=== PATIENT | male | born 1940 | race Caucasian/White ===

== ENCOUNTER 2017-05-27 22:37 | Inpatient (IN) | payer BC ==
[~2017-05-27] VITALS: Ht 180.3 cm; Wt 75.3 kg
[2017-05-27 22:52] LABS: BASOPHIL (%) 0.5 % (0-1); BASOPHIL COUNT 0.1 K/uL (0-0.1); EOSINOPHIL (%) 2.4 % (0-5); EOSINOPHIL COUNT 0.3 K/uL (0-0.3); HEMATOCRIT 38.1 % (38.0-50.0); HEMOGLOBIN 13.7 G/DL (12.5-16.6); IMMATURE GRANULOCYTE (%) 0.6 % (0.0-0.7); LYMPHOCYTE (%) 20.1 % (15-42); LYMPHOCYTE COUNT 2.8 K/uL (1.0-2.8); MCH 33.9 PG (29.0-34.0); MCV 94.3 FL (86-99); MONOCYTE (%) 6.1 % (3-12); MONOCYTE COUNT 0.9 K/uL (0-0.8); NEUTROPHIL (%) 70.3 % (45-76); NEUTROPHIL COUNT 9.9 K/uL (1.8-6.4); PLATELET COUNT 174 K/uL (156-360); RBC DIS.WIDTH-CV 13.2 % (11.8-14.6); RBC DIS.WIDTH-SD 45.2 % (39-53); RED BLOOD COUNT 4.04 M/uL (4.00-5.50); WHITE BLOOD COUNT 14.2 K/uL (4.1-10.2)
[2017-05-27 23:12] LABS: ALBUMIN 4.1 g/dL (3.2-4.8)
[2017-05-27 23:13] LABS: CHLORIDE 102 mEq/L (99-109); POTASSIUM 3.9 mEq/L (3.7-5.4); SODIUM 138 mEq/L (136-147)
[2017-05-27] MEDS ORDERED: XARELTO20 MG PO (23:13)
[2017-05-27] MEDS ORDERED: LOPRESSOR100 M1 PO (23:14)
[2017-05-27 23:15] LABS: GLUCOSE 134 mg/dL (70-99); TOTAL PROTEIN 6.3 g/dL (6.4-8.3)
[2017-05-27] MEDS ORDERED: GLUCOPHAGE500 MG PO (23:15)
[2017-05-27] MEDS ORDERED: VERAPAMIL HCL240 MG PO (23:16)
[2017-05-27] MEDS ORDERED: ZYLOPRIM100 MG PO (23:16)
[2017-05-27 23:17] LABS: TOTAL BILIRUBIN 0.8 mg/dL (0.0-1.0)
[2017-05-27] MEDS ORDERED: PRAVACHOL40 MG PO (23:17)
[2017-05-27 23:18] LABS: ALKALINE PHOSPHATASE 65 IU/L (3-129)
[2017-05-27 23:19] LABS: CREATININE 1.1 mg/dL (0.6-1.3); GFR ESTIMATE (CALCULATED) > 59 mL/min/ (58.99-99999)
[2017-05-27 23:20] LABS: AST (GOT) 20 IU/L (2-34); UREA NITROGEN (BUN) 29 mg/dL (9-23)
[2017-05-27] MEDS ORDERED: PAMELOR25 MG PO (23:20)
[2017-05-27] MEDS ORDERED: PROSCAR5 MG PO (23:20)
[2017-05-27 23:22] LABS: ALT (GPT) 21 IU/L (3-49); LIPASE 36 U/L (1.0-51.0)
[2017-05-27 23:40] LABS: INTER. NORMALIZED RATIO 2.3
[2017-05-27 23:42] LABS: PTT 30.8 SEC (25-37)
[2017-05-27] MEDS ORDERED: DIGOX125 MCG PO (23:50)
[2017-05-27] MEDS ORDERED: TYLENOL EXTRA500 MG PO (23:51)
[2017-05-27] MEDS ORDERED: HYDROCHLOROTH12.5 M3 PO (23:51)
[2017-05-28] VITALS (18 sets, daily range): BP systolic 100–155; BP diastolic 42–99
[2017-05-28 04:38] LABS: CHLORIDE 104 mEq/L (99-109); POTASSIUM 4.1 mEq/L (3.7-5.4); SODIUM 141 mEq/L (136-147)
[2017-05-28 04:41] LABS: GLUCOSE 211 mg/dL (70-99)
[2017-05-28 04:43] LABS: CREATININE 1.3 mg/dL (0.6-1.3); GFR ESTIMATE (CALCULATED) 57 mL/min/ (58.99-99999)
[2017-05-28 04:44] LABS: UREA NITROGEN (BUN) 29 mg/dL (9-23)
[2017-05-28 04:46] LABS: CREATINE KINASE 57 IU/L (1-294); TOTAL CK 57 IU/L (1-294)
[2017-05-28 04:48] LABS: HEMATOCRIT 27.4 % (38.0-50.0); MCH 34.7 PG (29.0-34.0); MCHC 34.7 G/DL (30.0-36.0); PLATELET COUNT 170 K/uL (156-360); RBC DIS.WIDTH-CV 13.7 % (11.8-14.6); RBC DIS.WIDTH-SD 49.9 % (39-53); WHITE BLOOD COUNT 17.2 K/uL (4.1-10.2)
[2017-05-28 04:49] LABS: HEMOGLOBIN 9.5 G/DL (12.5-16.6); RED BLOOD COUNT 2.74 M/uL (4.00-5.50)
[2017-05-28 04:51] LABS: CK-MB 1.8 ng/mL (0.0-4.9); CKMB RELATIVE INDEX 3.2 (0.0-3.9)
[2017-05-28 11:21] LABS: HEMATOCRIT 29.5 % (38.0-50.0); MCH 32.5 PG (29.0-34.0); MCHC 33.9 G/DL (30.0-36.0); PLATELET COUNT 135 K/uL (156-360); RBC DIS.WIDTH-SD 55.1 % (39-53); RED BLOOD COUNT 3.08 M/uL (4.00-5.50); WHITE BLOOD COUNT 15.5 K/uL (4.1-10.2)
[2017-05-28 11:23] LABS: MCV 95.8 FL (86-99)
[2017-05-28 15:57] LABS: HEMATOCRIT 29.7 % (38.0-50.0); MCH 32.9 PG (29.0-34.0); MCHC 33.7 G/DL (30.0-36.0); MCV 97.7 FL (86-99); PLATELET COUNT 153 K/uL (156-360); RBC DIS.WIDTH-CV 16.7 % (11.8-14.6); RBC DIS.WIDTH-SD 58.5 % (39-53); RED BLOOD COUNT 3.04 M/uL (4.00-5.50); WHITE BLOOD COUNT 23.1 K/uL (4.1-10.2)
[2017-05-28 22:35] LABS: HEMATOCRIT 22.6 % (38.0-50.0); MCH 32.8 PG (29.0-34.0); MCHC 34.5 G/DL (30.0-36.0); PLATELET COUNT 117 K/uL (156-360); RBC DIS.WIDTH-CV 16.3 % (11.8-14.6); RBC DIS.WIDTH-SD 56.1 % (39-53); WHITE BLOOD COUNT 16.2 K/uL (4.1-10.2)
[2017-05-28 22:36] LABS: HEMOGLOBIN 7.8 G/DL (12.5-16.6); RED BLOOD COUNT 2.38 M/uL (4.00-5.50)
[2017-05-29] VITALS (20 sets, daily range): BP systolic 106–162; BP diastolic 46–70
[2017-05-29 02:16] LABS: HEMATOCRIT 21.9 % (38.0-50.0); HEMOGLOBIN 7.6 G/DL (12.5-16.6); MCHC 34.7 G/DL (30.0-36.0); MCV 95.2 FL (86-99); PLATELET COUNT 108 K/uL (156-360); RBC DIS.WIDTH-CV 16.5 % (11.8-14.6); RBC DIS.WIDTH-SD 57.2 % (39-53); WHITE BLOOD COUNT 15.8 K/uL (4.1-10.2)
[2017-05-29 09:18] LABS: HEMATOCRIT 26.5 % (38.0-50.0); HEMOGLOBIN 8.8 G/DL (12.5-16.6); MCH 32.1 PG (29.0-34.0); MCHC 33.2 G/DL (30.0-36.0); MCV 96.7 FL (86-99); PLATELET COUNT 114 K/uL (156-360); RBC DIS.WIDTH-CV 16.9 % (11.8-14.6); RED BLOOD COUNT 2.74 M/uL (4.00-5.50); WHITE BLOOD COUNT 14.2 K/uL (4.1-10.2)
[2017-05-29 09:55] LABS: CHLORIDE 104 MEQ/L (99-109); CREATINE KINASE 169 IU/L (1-294); GLUCOSE 122 mg/dL (70-99); POTASSIUM 4.3 MEQ/L (3.7-5.4); SODIUM 138 MEQ/L (136-147); TOTAL CK 169 IU/L (1-294)
[2017-05-29 10:04] LABS: CREATININE 2.2 MG/DL (0.6-1.3); GFR ESTIMATE (CALCULATED) 31 mL/min/ (58.99-99999); UREA NITROGEN (BUN) 45 mg/dL (9-23)
[2017-05-29 10:25] LABS: CK-MB 3.3 ng/mL (0.0-4.9)
[2017-05-29 14:44] LABS: HEMATOCRIT 25.4 % (38.0-50.0); HEMOGLOBIN 8.5 G/DL (12.5-16.6); MCV 95.5 FL (86-99)
[2017-05-30] VITALS (14 sets, daily range): BP systolic 141–189; BP diastolic 7–79
[2017-05-30 05:54] LABS: HEMATOCRIT 22.7 % (38.0-50.0); HEMOGLOBIN 7.5 G/DL (12.5-16.6); MCH 31.6 PG (29.0-34.0); MCV 95.8 FL (86-99); PLATELET COUNT 97 K/uL (156-360); RBC DIS.WIDTH-CV 17.1 % (11.8-14.6); RBC DIS.WIDTH-SD 58.8 % (39-53); RED BLOOD COUNT 2.37 M/uL (4.00-5.50); WHITE BLOOD COUNT 9.9 K/uL (4.1-10.2)
[2017-05-30 06:34] LABS: CHLORIDE 107 MEQ/L (99-109); CREATININE 1.8 MG/DL (0.6-1.3); GFR ESTIMATE (CALCULATED) 39 mL/min/ (58.99-99999); GLUCOSE 129 mg/dL (70-99); POTASSIUM 3.8 MEQ/L (3.7-5.4); SODIUM 141 MEQ/L (136-147); UREA NITROGEN (BUN) 55 mg/dL (9-23)
[2017-05-30 06:58] LABS: BASOPHIL (%) 0.1 % (0-1); EOSINOPHIL (%) 0.2 % (0-5); IMMATURE GRANULOCYTE (%) 0.7 % (0.0-0.7); LYMPHOCYTE (%) 14.3 % (15-42); LYMPHOCYTE COUNT 1.4 K/uL (1.0-2.8); MONOCYTE (%) 5.9 % (3-12); MONOCYTE COUNT 0.6 K/uL (0-0.8); NEUTROPHIL (%) 78.8 % (45-76); NEUTROPHIL COUNT 7.8 K/uL (1.8-6.4)
[2017-05-31] VITALS (9 sets, daily range): BP systolic 132–190; BP diastolic 65–82
[2017-05-31 07:46] LABS: HEMATOCRIT 29.3 % (38.0-50.0); MCH 31.1 PG (29.0-34.0); MCHC 34.1 G/DL (30.0-36.0); NRBC (%) 0.4 /100 WBC (0-0); PLATELET COUNT 121 K/uL (156-360); RBC DIS.WIDTH-CV 19.1 % (11.8-14.6); RBC DIS.WIDTH-SD 61.8 % (39-53); RED BLOOD COUNT 3.22 M/uL (4.00-5.50)
[2017-05-31 08:02] LABS: CHLORIDE 106 MEQ/L (99-109); CREATININE 1.2 MG/DL (0.6-1.3); GFR ESTIMATE (CALCULATED) > 59 mL/min/ (58.99-99999); GLUCOSE 133 mg/dL (70-99); POTASSIUM 3.2 MEQ/L (3.7-5.4); SODIUM 140 MEQ/L (136-147); UREA NITROGEN (BUN) 38 mg/dL (9-23)
[2017-05-31 12:41] LABS: C DIFF TOXIN NEGATIVE (NEGATIVE)
[2017-06-01 03:29] VITALS: BP 109/55; BP 152/75
[2017-06-01 07:25] VITALS: BP 162/78
[2017-06-01 11:31] VITALS: BP 152/67
[2017-06-01 12:35] LABS: HEMOGLOBIN 10.3 G/DL (12.5-16.6); MCH 31.5 PG (29.0-34.0); MCHC 34.3 G/DL (30.0-36.0); MCV 91.7 FL (86-99); NRBC (%) 0.3 /100 WBC (0-0); RBC DIS.WIDTH-CV 18.8 % (11.8-14.6); RBC DIS.WIDTH-SD 60.7 % (39-53); RED BLOOD COUNT 3.27 M/uL (4.00-5.50); WHITE BLOOD COUNT 11.7 K/uL (4.1-10.2)
[2017-06-01 12:38] LABS: PLATELET COUNT 178 K/uL (156-360)
[2017-06-01 12:55] LABS: CHLORIDE 102 mEq/L (99-109); POTASSIUM 3.2 mEq/L (3.7-5.4); SODIUM 136 mEq/L (136-147)
[2017-06-01 12:57] LABS: GLUCOSE 146 mg/dL (70-99)
[2017-06-01 13:01] LABS: CREATININE 0.8 mg/dL (0.6-1.3); GFR ESTIMATE (CALCULATED) > 59 mL/min/ (58.99-99999); UREA NITROGEN (BUN) 24 mg/dL (9-23)
[2017-06-01 16:39] VITALS: BP 172/73
[2017-06-01 20:18] VITALS: BP 152/67
[2017-06-01 23:24] VITALS: BP 150/72
[2017-06-02 05:53] LABS: HEMATOCRIT 28.8 % (38.0-50.0); HEMOGLOBIN 9.5 G/DL (12.5-16.6); MCH 30.4 PG (29.0-34.0); PLATELET COUNT 177 K/uL (156-360); RBC DIS.WIDTH-CV 18.2 % (11.8-14.6); RBC DIS.WIDTH-SD 58.9 % (39-53); RED BLOOD COUNT 3.13 M/uL (4.00-5.50); WHITE BLOOD COUNT 13.9 K/uL (4.1-10.2)
[2017-06-02 06:34] LABS: CHLORIDE 105 MEQ/L (99-109); GFR ESTIMATE (CALCULATED) > 59 mL/min/ (58.99-99999); GLUCOSE 138 mg/dL (70-99); SODIUM 141 MEQ/L (136-147); UREA NITROGEN (BUN) 25 mg/dL (9-23)
[2017-06-02 06:47] LABS: POTASSIUM 4.1 MEQ/L (3.7-5.4)
[2017-06-02 07:00] VITALS: BP 152/80
[2017-06-02] MEDS ORDERED: CLONIDINE HCL0.1 MG PO (10:28)
[2017-06-02 11:06] VITALS: BP 155/68
[2017-06-02 15:03] VITALS: BP 136/65
== END 2017-06-02 19:14 | DRG 269 ==
LOC: EME 22:37 → SDC 05-28 00:51 → EME 05-28 00:51 → 2SOUTH 05-28 03:55 → 4WEST 05-28 03:55 → 4EAST 05-28 03:55 → ENRESERV 05-28 03:57 → 4WEST 05-28 05:58 → ENRESERV 05-29 09:02 → 4WEST 05-29 10:08 → 4EAST 05-29 10:52 → ENPENDDIS 06-02 → 4EAST 06-02 19:14
PROVIDERS: Emergency Medicine; Physician Assistant Surgical; Surgery; Thoracic Surgery (Cardiothoracic Vascular Surgery)
DX: I71.3 Abdominal aortic aneurysm, ruptured (principal); D62 Acute posthemorrhagic anemia; I95.9 Hypotension, unspecified; E11.65 Type 2 diabetes mellitus with hyperglycemia; E83.51 Hypocalcemia; L76.32 Postprocedural hematoma of skin and subcutaneous tissue following other procedure; Y83.2 Surgical operation with anastomosis, bypass or graft as the cause of abnormal reaction of the patient, or of later complication, without mention of misadventure at the time of the procedure; I10 Essential (primary) hypertension; I48.91 Unspecified atrial fibrillation; E78.5 Hyperlipidemia, unspecified; M10.9 Gout, unspecified; K40.20 Bilateral inguinal hernia, without obstruction or gangrene, not specified as recurrent; Z95.0 Presence of cardiac pacemaker; Z87.891 Personal history of nicotine dependence; Z79.01 Long term (current) use of anticoagulants
CPT/HCPCS: 71275; 74174; 80047; 80048; 80053; 82550; 82553; 82948; 83690; 85014; 85018; 85025; 85027; 85610; 85730; 86850; 86900; 86901; 86920; 87493; 87641; 93005; 93971; 94799; 97530 GO; 97530 GP; 99281; 99285; C1725; C1760; C1769; C1874; C1887; C1894; C9132; J0131; J0330; J0610; J0690; J1100; J1170; J1644; J1815; J1885; J2270; J2405; J2720; J2765; J3010; J7030; J7050; J7120; P9016; P9045; S0020

== ENCOUNTER 2017-06-04 00:39 | Inpatient (IN) | payer BC ==
[~2017-06-04] VITALS: Ht 177.8 cm; Wt 78.9 kg
[2017-06-04] VITALS (7 sets, daily range): BP systolic 147–184; BP diastolic 69–81
[~2017-06-04 00:39] MED LIST: CLONIDINE HCL0.1 MG PO; DIGOX125 MCG PO; GLUCOPHAGE500 MG PO; HYDROCHLOROTH12.5 M3 PO; LOPRESSOR100 M1 PO; PAMELOR25 MG PO; PRAVACHOL40 MG PO; PROSCAR5 MG PO; TYLENOL EXTRA500 MG PO; VERAPAMIL HCL240 MG PO; XARELTO20 MG PO; ZYLOPRIM100 MG PO
[2017-06-04 05:39] LABS: HEMATOCRIT 23.4 % (38.0-50.0); HEMOGLOBIN 7.8 G/DL (12.5-16.6); MCH 31.6 PG (29.0-34.0); MCHC 33.3 G/DL (30.0-36.0); MCV 94.7 FL (86-99); PLATELET COUNT 165 K/uL (156-360); RBC DIS.WIDTH-CV 17.9 % (11.8-14.6); RBC DIS.WIDTH-SD 62.3 % (39-53); WHITE BLOOD COUNT 8.2 K/uL (4.1-10.2)
[2017-06-04 05:45] LABS: RED BLOOD COUNT 2.47 M/uL (4.00-5.50)
[2017-06-04 05:58] LABS: ALBUMIN 2.9 G/DL (3.2-4.8); ALKALINE PHOSPHATASE 61 IU/L (3-129); ALT (GPT) 33 IU/L (3-49); AST (GOT) 35 IU/L (2-34); CHLORIDE 109 MEQ/L (99-109); CREATININE 0.8 MG/DL (0.6-1.3); DIRECT BILIRUBIN 0.8 mg/dL (0.0-0.3); GFR ESTIMATE (CALCULATED) > 59 mL/min/ (58.99-99999); GLUCOSE 119 mg/dL (70-99); SODIUM 139 MEQ/L (136-147); TOTAL BILIRUBIN 2.2 MG/DL (0.0-1.0); TOTAL PROTEIN 4.9 G/DL (6.4-8.3); TROP-I INTERPRETATION NEGATIVE; TROPONIN-I 0.05 ng/mL (0.0-0.30); UREA NITROGEN (BUN) 22 mg/dL (9-23)
[2017-06-04 06:00] LABS: POTASSIUM 3.1 MEQ/L (3.7-5.4)
[2017-06-04 07:46] LABS: MAGNESIUM 1.8 mg/dl (1.3-2.7)
[2017-06-04 07:54] LABS: BASOPHIL (%) 0.2 % (0-1); EOSINOPHIL COUNT 0.3 K/uL (0-0.3); IMMATURE GRANULOCYTE (%) 3.1 % (0.0-0.7); LYMPHOCYTE (%) 8.3 % (15-42); LYMPHOCYTE COUNT 0.7 K/uL (1.0-2.8); MONOCYTE (%) 7.5 % (3-12); MONOCYTE COUNT 0.7 K/uL (0-0.8); NEUTROPHIL (%) 77.9 % (45-76); NEUTROPHIL COUNT 6.8 K/uL (1.8-6.4)
[2017-06-04 08:21] LABS: BASOPHIL (%) 0.4 % (0-1); EOSINOPHIL (%) 4.3 % (0-5); EOSINOPHIL COUNT 0.4 K/uL (0-0.3); HEMATOCRIT 29.2 % (38.0-50.0); HEMOGLOBIN 9.8 G/DL (12.5-16.6); IMMATURE GRANULOCYTE (%) 2.6 % (0.0-0.7); LYMPHOCYTE (%) 8.6 % (15-42); LYMPHOCYTE COUNT 0.7 K/uL (1.0-2.8); MCH 31.5 PG (29.0-34.0); MCHC 33.6 G/DL (30.0-36.0); MCV 93.9 FL (86-99); MONOCYTE (%) 6.4 % (3-12); MONOCYTE COUNT 0.5 K/uL (0-0.8); NEUTROPHIL (%) 77.7 % (45-76); NEUTROPHIL COUNT 6.6 K/uL (1.8-6.4); PLATELET COUNT 190 K/uL (156-360); RBC DIS.WIDTH-CV 18.1 % (11.8-14.6); RBC DIS.WIDTH-SD 61.3 % (39-53); RED BLOOD COUNT 3.11 M/uL (4.00-5.50); WHITE BLOOD COUNT 8.5 K/uL (4.1-10.2)
[2017-06-04 09:13] LABS: CHLORIDE 108 MEQ/L (99-109); CREATININE 0.7 MG/DL (0.6-1.3); GFR ESTIMATE (CALCULATED) > 59 mL/min/ (58.99-99999); GLUCOSE 108 mg/dL (70-99); MAGNESIUM 1.8 mg/dl (1.3-2.7); POTASSIUM 3.2 MEQ/L (3.7-5.4); SODIUM 139 MEQ/L (136-147); UREA NITROGEN (BUN) 21 mg/dL (9-23)
[2017-06-04 16:00] LABS: BASE EXCESS -1.5 mEq/L (-3 to +3); BICARBONATE 20.7 mEq/L (22-26); CARBOXY HGB 2.6 % (0-5); COMMENTS - BLOOD GASES A+C+; DEVICE NC; METHEMOGLOBIN 1.8 % (0-1.5); O2 FLOW 2 L/MIN; PCO2 26 mm Hg (35-45); PO2 72 mm Hg (80-100); SITE LR; pH 7.51 (7.35-7.45)
[2017-06-04] MEDS ORDERED: TYLENOL REGULA325 MG PO (16:25)
[2017-06-04] MEDS ORDERED: PERCOCET 5/31 TABLET PO (16:27)
[2017-06-04] MEDS ORDERED: MILK OF MAGN PO (16:28)
[2017-06-04 19:53] LABS: C DIFF TOXIN ND (NEGATIVE)
[2017-06-05] VITALS (7 sets, daily range): BP systolic 142–184; BP diastolic 67–102
[2017-06-05 08:19] LABS: HEMATOCRIT 28.3 % (38.0-50.0); HEMOGLOBIN 9.4 G/DL (12.5-16.6); MCH 30.8 PG (29.0-34.0); MCHC 33.2 G/DL (30.0-36.0); MCV 92.8 FL (86-99); PLATELET COUNT 240 K/uL (156-360); RBC DIS.WIDTH-CV 17.9 % (11.8-14.6); RBC DIS.WIDTH-SD 59.7 % (39-53); RED BLOOD COUNT 3.05 M/uL (4.00-5.50); WHITE BLOOD COUNT 10.5 K/uL (4.1-10.2)
[2017-06-05 08:41] LABS: CHLORIDE 104 MEQ/L (99-109); CREATININE 0.7 MG/DL (0.6-1.3); GFR ESTIMATE (CALCULATED) > 59 mL/min/ (58.99-99999); GLUCOSE 106 mg/dL (70-99); POTASSIUM 3.5 MEQ/L (3.7-5.4); SODIUM 138 MEQ/L (136-147); UREA NITROGEN (BUN) 20 mg/dL (9-23)
[2017-06-06] VITALS (8 sets, daily range): BP systolic 152–182; BP diastolic 67–78
[2017-06-06 05:57] LABS: BASOPHIL (%) 0.3 % (0-1); EOSINOPHIL (%) 3.1 % (0-5); EOSINOPHIL COUNT 0.3 K/uL (0-0.3); HEMOGLOBIN 9.6 G/DL (12.5-16.6); IMMATURE GRANULOCYTE (%) 1.9 % (0.0-0.7); LYMPHOCYTE (%) 9.8 % (15-42); MCH 30.6 PG (29.0-34.0); MCHC 33.1 G/DL (30.0-36.0); MCV 92.4 FL (86-99); MONOCYTE (%) 6.1 % (3-12); MONOCYTE COUNT 0.6 K/uL (0-0.8); NEUTROPHIL (%) 78.8 % (45-76); NEUTROPHIL COUNT 8.1 K/uL (1.8-6.4); PLATELET COUNT 258 K/uL (156-360); RBC DIS.WIDTH-CV 17.8 % (11.8-14.6); RBC DIS.WIDTH-SD 59.5 % (39-53); RED BLOOD COUNT 3.14 M/uL (4.00-5.50); WHITE BLOOD COUNT 10.3 K/uL (4.1-10.2)
[2017-06-06 06:30] LABS: CHLORIDE 103 MEQ/L (99-109); CREATININE 0.8 MG/DL (0.6-1.3); GFR ESTIMATE (CALCULATED) > 59 mL/min/ (58.99-99999); GLUCOSE 116 mg/dL (70-99); POTASSIUM 4.2 MEQ/L (3.7-5.4); SODIUM 139 MEQ/L (136-147); UREA NITROGEN (BUN) 18 mg/dL (9-23)
[2017-06-06 06:32] LABS: MAGNESIUM 1.4 mg/dl (1.3-2.7)
[2017-06-07 04:44] VITALS: BP 142/77
[2017-06-07 05:02] VITALS: BP 151/67
[2017-06-07 07:53] VITALS: BP 168/70
[2017-06-07 11:44] VITALS: BP 183/76
[2017-06-07 11:44] LABS: HEMATOCRIT 29.4 % (38.0-50.0); HEMOGLOBIN 10.1 G/DL (12.5-16.6); MCH 31.9 PG (29.0-34.0); MCHC 34.4 G/DL (30.0-36.0); MCV 92.7 FL (86-99); PLATELET COUNT 274 K/uL (156-360); RBC DIS.WIDTH-CV 17.6 % (11.8-14.6); RBC DIS.WIDTH-SD 59.8 % (39-53); RED BLOOD COUNT 3.17 M/uL (4.00-5.50); WHITE BLOOD COUNT 10.9 K/uL (4.1-10.2)
[2017-06-07 16:17] VITALS: BP 162/78
[2017-06-07 19:15] VITALS: BP 210/86
[2017-06-08] VITALS (10 sets, daily range): BP systolic 134–168; BP diastolic 60–79
[2017-06-08 05:32] LABS: HEMATOCRIT 24.5 % (38.0-50.0); MCH 30.4 PG (29.0-34.0); MCHC 32.7 G/DL (30.0-36.0); MCV 93.2 FL (86-99); PLATELET COUNT 289 K/uL (156-360); RBC DIS.WIDTH-CV 17.8 % (11.8-14.6); RED BLOOD COUNT 2.63 M/uL (4.00-5.50); WHITE BLOOD COUNT 11.8 K/uL (4.1-10.2)
[2017-06-08 05:54] LABS: CHLORIDE 99 MEQ/L (99-109); CREATININE 0.8 MG/DL (0.6-1.3); GFR ESTIMATE (CALCULATED) > 59 mL/min/ (58.99-99999); GLUCOSE 121 mg/dL (70-99); MAGNESIUM 1.5 mg/dl (1.3-2.7); SODIUM 134 MEQ/L (136-147); UREA NITROGEN (BUN) 24 mg/dL (9-23)
[2017-06-08 05:55] LABS: POTASSIUM 2.9 MEQ/L (3.7-5.4)
[2017-06-09 04:25] VITALS: BP 152/66
[2017-06-09 05:38] LABS: HEMATOCRIT 25.7 % (38.0-50.0); HEMOGLOBIN 8.5 G/DL (12.5-16.6); MCH 30.7 PG (29.0-34.0); MCHC 33.1 G/DL (30.0-36.0); MCV 92.8 FL (86-99); PLATELET COUNT 326 K/uL (156-360); RBC DIS.WIDTH-CV 18.9 % (11.8-14.6); RBC DIS.WIDTH-SD 63.3 % (39-53); RED BLOOD COUNT 2.77 M/uL (4.00-5.50); WHITE BLOOD COUNT 11.4 K/uL (4.1-10.2)
[2017-06-09 05:53] LABS: CHLORIDE 102 MEQ/L (99-109); CREATININE 0.9 MG/DL (0.6-1.3); GFR ESTIMATE (CALCULATED) > 59 mL/min/ (58.99-99999); GLUCOSE 103 mg/dL (70-99); SODIUM 136 MEQ/L (136-147); UREA NITROGEN (BUN) 27 mg/dL (9-23)
[2017-06-09 05:55] LABS: MAGNESIUM 1.9 mg/dl (1.3-2.7); POTASSIUM 3.8 MEQ/L (3.7-5.4)
[2017-06-09 08:39] VITALS: BP 150/72
[2017-06-09 12:08] VITALS: BP 145/65
[2017-06-09 15:50] VITALS: BP 149/68
[2017-06-09 21:06] VITALS: BP 155/67
[2017-06-09 23:30] VITALS: BP 154/70
[2017-06-10 04:02] VITALS: BP 169/70
[2017-06-10 06:10] LABS: HEMATOCRIT 24.3 % (38.0-50.0); HEMOGLOBIN 8.1 G/DL (12.5-16.6); MCV 93.5 FL (86-99)
[2017-06-10 08:17] VITALS: BP 136/61
[2017-06-10 11:27] VITALS: BP 140/63
[2017-06-10 15:52] VITALS: BP 175/75
[2017-06-10 20:23] VITALS: BP 167/72
[2017-06-10 23:03] VITALS: BP 133/97
[2017-06-11] VITALS (10 sets, daily range): BP systolic 137–176; BP diastolic 63–78
[2017-06-11 05:30] LABS: HEMATOCRIT 24.2 % (38.0-50.0); HEMOGLOBIN 7.9 G/DL (12.5-16.6); MCV 93.1 FL (86-99)
[2017-06-12 00:52] VITALS: BP 153/72
[2017-06-12 04:37] VITALS: BP 157/70
[2017-06-12 06:25] LABS: HEMATOCRIT 30.7 % (38.0-50.0); MCH 30.4 PG (29.0-34.0); MCHC 32.6 G/DL (30.0-36.0); MCV 93.3 FL (86-99); PLATELET COUNT 296 K/uL (156-360); RBC DIS.WIDTH-CV 18.6 % (11.8-14.6); RBC DIS.WIDTH-SD 61.7 % (39-53); RED BLOOD COUNT 3.29 M/uL (4.00-5.50); WHITE BLOOD COUNT 10.6 K/uL (4.1-10.2)
[2017-06-12 06:37] LABS: CHLORIDE 99 MEQ/L (99-109); CREATININE 0.9 MG/DL (0.6-1.3); GFR ESTIMATE (CALCULATED) > 59 mL/min/ (58.99-99999); GLUCOSE 110 mg/dL (70-99); MAGNESIUM 1.7 mg/dl (1.3-2.7); POTASSIUM 3.5 MEQ/L (3.7-5.4); SODIUM 137 MEQ/L (136-147); UREA NITROGEN (BUN) 28 mg/dL (9-23)
[2017-06-12 07:53] VITALS: BP 134/64
[2017-06-12 11:55] VITALS: BP 151/68
[2017-06-12 17:06] VITALS: BP 168/72
[2017-06-12 20:00] VITALS: BP 164/71
[2017-06-13] VITALS: BP 187/92
[2017-06-13 04:00] VITALS: BP 186/86
[2017-06-13 06:22] LABS: HEMATOCRIT 31.4 % (38.0-50.0); HEMOGLOBIN 10.2 G/DL (12.5-16.6); MCH 30.7 PG (29.0-34.0); MCHC 32.5 G/DL (30.0-36.0); MCV 94.6 FL (86-99); PLATELET COUNT 280 K/uL (156-360); RBC DIS.WIDTH-CV 18.7 % (11.8-14.6); RBC DIS.WIDTH-SD 63.4 % (39-53); RED BLOOD COUNT 3.32 M/uL (4.00-5.50); WHITE BLOOD COUNT 9.9 K/uL (4.1-10.2)
[2017-06-13 06:55] LABS: CHLORIDE 100 MEQ/L (99-109); CREATININE 0.8 MG/DL (0.6-1.3); GFR ESTIMATE (CALCULATED) > 59 mL/min/ (58.99-99999); GLUCOSE 116 mg/dL (70-99); POTASSIUM 3.6 MEQ/L (3.7-5.4); SODIUM 137 MEQ/L (136-147); UREA NITROGEN (BUN) 24 mg/dL (9-23)
[2017-06-13 07:10] VITALS: BP 169/82
[2017-06-13] MEDS ORDERED: METRONIDAZOLE500 MG PO (11:57)
[2017-06-13] MEDS ORDERED: APRESOLINE25 MG PO (11:57)
[2017-06-13] MEDS ORDERED: METAMUCIL PACK3.4 GM PO (11:57)
[2017-06-13] MEDS ORDERED: K-DUR20 MEQ PO (12:07)
== END 2017-06-13 15:56 | disposition home health service (06) | DRG 907 ==
LOC: EME → EDBD 00:39 → EME 00:39 → EDOF 01:31 → 4EAST 01:31 → ENRESERV 01:33 → 4EAST 02:50 → ENRESERV 06-11 19:25 → 5SOUTH 06-11 20:36
PROVIDERS: Hospitalist; Internal Medicine; Physician Assistant Medical
PROC: 0J9D0ZZ Drainage of Right Upper Arm Subcutaneous Tissue and Fascia, Open Approach (ICD-10-PCS; principal; 2017-06-07)
PROC: 03Q70ZZ Repair Right Brachial Artery, Open Approach (ICD-10-PCS; principal; 2017-06-07)
PROC: 30233N1 Transfusion of Nonautologous Red Blood Cells into Peripheral Vein, Percutaneous Approach (ICD-10-PCS; 2017-06-08)
DX: I97.638 Postprocedural hematoma of a circulatory system organ or structure following other circulatory system procedure (principal); I97.618 Postprocedural hemorrhage of a circulatory system organ or structure following other circulatory system procedure; M79.A11 Nontraumatic compartment syndrome of right upper extremity; Y84.8 Other medical procedures as the cause of abnormal reaction of the patient, or of later complication, without mention of misadventure at the time of the procedure; K55.9 Vascular disorder of intestine, unspecified; K66.1 Hemoperitoneum; J90 Pleural effusion, not elsewhere classified; I48.91 Unspecified atrial fibrillation; D62 Acute posthemorrhagic anemia; E87.6 Hypokalemia; E11.9 Type 2 diabetes mellitus without complications; I10 Essential (primary) hypertension; E78.5 Hyperlipidemia, unspecified; R01.1 Cardiac murmur, unspecified; M10.9 Gout, unspecified; Z86.79 Personal history of other diseases of the circulatory system; Z95.828 Presence of other vascular implants and grafts; Z95.0 Presence of cardiac pacemaker; Z79.01 Long term (current) use of anticoagulants; Z79.84 Long term (current) use of oral hypoglycemic drugs; Z87.891 Personal history of nicotine dependence
CPT/HCPCS: 36600; 71045; 74177; 80048; 80048 91; 80076; 80202; 82803; 82948; 83605; 83735; 84132 91; 84484; 85014; 85018; 85025; 85025 91; 85027; 86850; 86900; 86901; 86920; 87040; 87177; 87493; 87506; 93306; 93971; 97530 GO; 97530 GP; 99281; 99285; A6214; C9132; J0456; J0690; J0692; J1170; J1815; J1940; J2270; J2405; J3370; J3430; J3475; J3480; J7030; J7040; J7050; P9016; S0020